=== PATIENT | female | born 1950 | race Two or more races ===

== ENCOUNTER 2020-08-28 16:48 | Emergency (ER) | payer OTHER ==
[~2020-08-28] VITALS: Ht 160 cm; Wt 65.8 kg
[2020-08-28] MEDS ORDERED: ZESTRIL2.5 MG PO (16:59)
[2020-08-28] MEDS ORDERED: APRESOLINE 10MG10 MG PO (16:59)
[2020-08-28] MEDS ORDERED: TOPROL XL25 M1 PO (16:59)
== END 2020-08-28 20:45 | disposition home or self-care (01) ==
LOC: ER 16:48
DX: R10.13 Epigastric pain (principal)

== ENCOUNTER → 2021-03-28 | Emergency (ER) | payer OTHER ==
[~2021-03-28] MED LIST: APRESOLINE 10MG10 MG PO; AZO URINARY PAIN; TOPROL XL25 M1 PO; ZESTRIL2.5 MG PO
== END | disposition left against medical advice (07) ==
LOC: ER 17:03
DX: R10.13 Epigastric pain (principal); I10 Essential (primary) hypertension; Z53.29 Procedure and treatment not carried out because of patient's decision for other reasons

== ENCOUNTER → 2021-03-29 | Emergency (ER) | payer OTHER ==
[~2021-03-29] VITALS: Ht 160 cm; Wt 68.0 kg
== END | disposition left against medical advice (07) ==
LOC: ER 15:09
DX: R10.13 Epigastric pain (principal)